=== PATIENT | female | born 1940 | race Caucasian/White ===

== ENCOUNTER 2016-10-16 07:41 | Day surgery (SDC) | payer MEDICARE ==
[~2016-10-16] VITALS: Ht 160 cm; Wt 61.4 kg
[~2016-10-16 07:41] MED LIST: AMLO5TAB22 PO; AUGM875T PO; BENA20 PO; Mupirocin 2% Oint TOPICAL
[2016-10-16 08:09] VITALS: BP 158/69; PULSE 71; RESP 18; TEMP 99.1; O2SAT 95
[2016-10-16] MEDS ORDERED: SODIUM CHLOR 0.9% 1000 ML IV SCH (08:30)
[2016-10-16 09:02] LABS: HEMATOCRIT 27.2 % (35.0-46.0); MEAN CELL VOLUME 94.9 FL (80.0-100.0); MEAN CORPUSCULAR HEMOGLOBIN 32.3 PG (27.0-34.0); RED BLOOD COUNT 2.87 MIL/MM3 (4.00-5.30); RED CELL DISTRIBUTION WIDTH 13.9 % (11.6-17.2); WHITE BLOOD COUNT 2.7 TH/MM3 (4.0-11.0)
[2016-10-16 09:07] LABS: HEMO FLAGS AUTO DIFF
[2016-10-16 09:09] LABS: PLATELET COUNT 14 TH/MM3 (150-450)
[2016-10-16 09:45] LABS: BANDS 13 % (0-6); METAMYELOCYTES 3 % (0-1); MYELOCYTES 1 % (0-0); NEUTROPHIL # MANUAL DIFF 1.1 TH/MM3 (1.8-7.7); POLYS (SEG NEUTROPHILS) 25 % (16-70); WBC DIFF SAMPLE 100
[2016-10-16 09:46] LABS: DOHLE BODIES PRESENT (NONE SEEN)
[2016-10-16 09:48] LABS: TEARDROP RBCS 1+ (NORMAL)
[2016-10-16 09:49] LABS: OVALOCYTES 1+ (NORMAL); TOXIC GRANULATION 1+ (NORMAL)
[2016-10-16 09:52] LABS: SCAN/DIFF FINAL DIFF MANUAL; TOXIC VACUOLATION PRESENT (NONE SEEN)
[2016-10-16 09:53] LABS: PLATELET ESTIMATE SMEAR LOW (NORMAL); PLATELET MORPHOLOGY NORMAL (NORMAL)
[2016-10-16] MEDS ORDERED: fentaNYL CITRATE 250 MCG/5 ML AMP ONE (10:36)
[2016-10-16] MEDS ORDERED: MIDAZOLAM HCL 5 MG/5 ML VIAL ONE (10:36)
[2016-10-16] MEDS ORDERED: LIDOCAINE 1%/EPINEPHrine 1:100,000 SOLN 20 ML VIAL ONE (10:48)
[2016-10-16 11:45] VITALS: BP_SYST 108; BP_SYST 118; BP_DIAS 51; BP_DIAS 63; PULSE 77; PULSE 92; RESP 18; TEMP 97.5; TEMP 98.5; O2SAT 91; O2SAT 94
[2016-10-16 12:00] VITALS: BP 117/50; PULSE 75; RESP 18; O2SAT 94
[2016-10-16 12:30] VITALS: BP 120/50; PULSE 70; RESP 18; O2SAT 96
--- NOTE | 2016-10-16 12:59 | RADRPT ---
EXAM DATE/TIME: 10/16/2016 11:09 [place] COMPARISON: CT NEEDLE BIOPSY BONE MARROW, February 14, 2015, 13:28. INDICATIONS : Chronic lymphocytic leukemia. SEDATION TIME: 30 minutes BIOPSY SITE: Right MEDICATION(S): 1.) 3.5 mg midazolam (Versed) IV 2.) 150 mcg fentanyl (Sublimaze) DEVICE(S): 1.) 11 gauge Bone marrow biopsy needle MEDICAL HISTORY : Diabetes mellitus type 2. Leukemia. SURGICAL HISTORY : Appendectomy. ENCOUNTER: Initial ACUITY: 1 day PAIN SCORE: 0/10 LOCATION: Right iliac A total of one core specimen(s) were obtained and sent to the laboratory for pathologic evaluation. PROCEDURE: 1. CT guided bone marrow biopsy. 2. Conscious sedation with continuous EKG and oximetry monitoring. 3. EKG and oximetry remained stable throughout the procedure. Prior to the procedure informed consent was obtained. Any appropriate prior imaging studies were rev iewed. Using automated exposure control and adjustment of the mA and/or kV according to patient size , radiation dose was kept as low as reasonably achievable to obtain optimal diagnostic quality images . DICOM format image data is available electronically for review and comparison. The site was prepped in a sterile fashion. Full sterile technique was used, including cap, mask, berto rile gloves and gown and a large sterile sheet. Hand hygiene and 2% chlorhexidine and/or betadine/al cohol prep was utilized per protocol for cutaneous antisepsis. The skin and subcutaneous tissues wer e infiltrated with local anesthetic solution. With CT guidance the previously identified target was localized. Biopsy was performed using the presc ribed needle as above. Following biopsy marrow aspiration was performed with repeat puncture. Adequa te hemostasis was obtained with compression at the puncture site. Follow-up CT scan reveals no hemorrhage. Conscious sedation was performed with the prescribed dosages and duration as above in the presence of an independent trained radiology nurse to assist in the monitoring of the patient. EKG and oximetry remained stable throughout the procedure. The patient tolerated the procedure well and there were no complications. The patient was sent to Radiology Outpatient Unit in stable condition. CONCLUSION: 1. Uncomplicated CT guided bone marrow aspirate. 2. Uncomplicated CT guided bone marrow biopsy. Bj Pierre MD on October 16, 2016 at 12:56 Board Certified Radiologist. This report was verified electronically.
[2016-10-16 13:00] VITALS: BP 112/52; PULSE 60; RESP 20; O2SAT 93
[2016-10-16 13:30] VITALS: BP 106/45; PULSE 56; RESP 16; O2SAT 92
[2016-10-16 13:38] LABS: BONE MARROW PROCESSING COMPLETE; IRON STAIN DONE; JENNER GIEMSA STAIN DONE
== END 2016-10-16 14:00 | disposition home or self-care (01) ==
LOC: HRAD 07:41 → HRIP 07:43 → HRAD 14:00
PROVIDERS: ATTEND Internal Medicine Hematology & Oncology
DX: C91.10 Chronic lymphocytic leukemia of B-cell type not having achieved remission (principal); E11.9 Type 2 diabetes mellitus without complications
CPT/HCPCS: 38221; 77012; 81342; 85007; 85027; 85097; 88305; 88311; 88312; 88313; 88341; 88342; 99152; 99153; C1830; G0364; J2250; J3010; J7030